=== PATIENT | female | born 1970 | race Caucasian/White ===

== ENCOUNTER 2022-03-01 23:52 | Observation (INO) | payer OTHER, SELFPAY ==
--- NOTE | ~2022-03-01 | CT_ITS ---
EXAMINATION: CT abdomen pelvis w con DATE: 03/02/2022 02:34 INDICATION: Hypoxia. Abdomen pain. Vomiting. TECHNIQUE: Computed tomography (CT) of the abdomen and pelvis was performed with 100 cc Omnipaque 350 intravenous contrast. The dose-length product was 205.28 mGy-cm. Automated exposure control and iter ative reconstruction technique were employed. COMPARISON: None. FINDINGS: Lung bases are unremarkable. There is lingular atelectasis/scarring. Heart size normal. Sma ll hiatal hernia. There is mild thickening of the distal stomach. There are fluid-filled enhancing sm all bowel loops. No pain with transition site is identified. Colonic diverticula without diverticulit is. There is hepatic steatosis. Gallbladder is present. The spleen, pancreas, adrenal glands and left kid sim are unremarkable. There is a right renal cyst. No significant vascular abnormality. No lymphadeno luther. No free air or free fluid. There is mild lumbar spondylosis. IMPRESSION: 1. Mild thickening of the stomach with fluid-filled distended enhancing small bowel. Findings suspici ous for gastroenteritis. 2: Small hiatal hernia. 3: Hepatic steatosis. Reviewed, dictated and finalized at location B. IMPRESSION: 1. Mild thickening of the stomach with fluid-filled distended enhancing small b owel. Findings suspicious for gastroenteritis. 2: Small hiatal hernia. 3: Hepatic steatosis.
--- NOTE | ~2022-03-01 | XR_ITS ---
EXAMINATION: XR chest 1V portable INDICATION: Hypoxia TECHNIQUE: Portable AP chest at 0329 hours COMPARISON: None available FINDINGS: The lungs are free of acute opacities. No pleural effusion or pneumothorax. The cardiomedia stinal silhouette is normal. IMPRESSION: 1. No acute cardiopulmonary abnormality. Reviewed, dictated and finalized at location A.
--- NOTE | ~2022-03-01 | XR_ITS ---
EXAMINATION: XR abdomen/kub 1V DATE: 03/03/2022 09:41 INDICATION: Constipation. TECHNIQUE: A supine view of the abdomen was obtained. COMPARISON: CT abdomen and pelvis 03/02/2022 FINDINGS: There are no dilated loops of bowel. There is a paucity of stool in the colon. IMPRESSION: 1. Normal bowel gas pattern. Reviewed, dictated and finalized at location A.
[2022-03-02] VITALS (18 sets, daily range): BP systolic 101–148; BP diastolic 67–96; PULSE 72–110; RESP 14–25; TEMP 35.8–36.8; O2SAT 93–100; BMI 18.7
--- NOTE | 2022-03-02 | ECHO_ITS ---
Patient Info Name: Karen Blackburn Age: 51 years : 1970 Gender: Female Ht: 64 in Wt: 109 lbs BSA: 1.49 m2 HR: 94 bpm BP: 104 / 68 mmHg Heart Rhythm: Sinus Rhythm Technical Quality: Fair Exam Date: 03/02/2022 2:38 PM Exam Location: [facility] Card Pulmonary Patient Status: Inpatient Admit Date: 03/02/2022 Staff Ordering Physician: Carlos Connor MD Risk Control Representative: Mary House RDCS Attending Provider: Ollie Ambriz MD Referring Physician: Geeta SALAZAR; Exam Type: CA echo doppler color flow Study Info Indications I47.2 - Ventricular tachycardia Complete two-dimensional, color flow and Doppler transthoracic echocardiogram is performed. Summary 1. Complete two-dimensional, color flow and Doppler transthoracic echocardiogram is performed. 2. The left ventricular diastolic function is normal. 3. Left ventricular chamber dimension is normal. 4. Left ventricular systolic function is normal, estimated at 65-70%. 5. There is no increased left ventricular wall thickness. 6. There is no aortic valve stenosis. 7. There is trace tricuspid valve regurgitation. 8. No pulmonary hypertension, estimated pulmonary arterial systolic pressure is 29 mmHg. 9. Normal inferior vena cava with <50% collapse upon inspiration consistent with elevated right atrial pressure, 10 mmHg. Left Ventricle The left ventricular diastolic function is normal. Left ventricular chamber dimension is normal. Left ventricular systolic function is normal, estimated at 65-70%. There is no increased left ventricular wall thickness. Right Ventricle Right ventricular chamber dimension is normal. Right ventricular systolic function is normal. Left Atria Left atrial chamber dimension is normal. Right Atria Right atrial chamber dimension is normal. Aortic Valve The aortic valve is not well visualized. There is no aortic valve stenosis. There is no aortic valve regurgitation. Pulmonic Valve The pulmonic valve is not well visualized. Mitral Valve The mitral valve has normal leaflets. There is trace mitral valve regurgitation. Tricuspid Valve The tricuspid valve leaflets are normal. There is trace tricuspid valve regurgitation. No pulmonary hypertension, estimated pulmonary arterial systolic pressure is 29 mmHg. Pericardium/Pleural The pericardium appears normal. There is no pericardial effusion. Inferior Vena Cava Normal inferior vena cava with <50% collapse upon inspiration consistent with elevated right atrial pressure, 10 mmHg. Aorta The aortic root size at the sinus of Valsalva is normal. Left Ventricular Outflow Tract Name Value Normal LVOT 2D LVOT Diameter 1.9 cm LVOT Doppler LVOT Peak Gradient 2 mmHg LVOT Mean Gradient 2 mmHg LVOT VTI 16 cm LVOT VTI/AV VTI Ratio 1.0 LVOT Stroke Volume 45 ml LVOT CO 3.2 l/min LVOT CI 2.1 l/min/m2 Pulmonic Valve
[2022-03-02 00:11] LABS: Basophils Absolute Auto 0.1 K/mm3 (0.0-0.1); Basophils Percent Auto 1.9 % (0.2-1.2); Eosinophils Absolute Auto 0.2 K/mm3 (0-0.3); Eosinophils Percent Auto 2.6 % (0-4.4); Hematocrit 38.1 % (37.0-47.0); Hemoglobin 13.6 g/dL (12.0-15.0); Immature Granulocyte Absolute 0.02 K/mm3 (0.00-0.031); Immature Granulocyte Percent A 0.3 % (0-0.5); Lymphocytes Absolute Auto 3.43 K/mm3 (0.9-3.2); Lymphocytes Percent Auto 55.5 % (18.3-44.2); Mean Corpuscular HGB Conc 35.7 g/dl (32-36); Mean Corpuscular Hemoglobin 35.8 pg (26-34); Mean Corpuscular Volume 100.3 fl (80-100); Mean Platelet Volume 10.5 fl (7.4-10.4); Monocytes Absolute Auto 0.9 K/mm3 (0.1-0.6); Monocytes Percent Auto 14.2 % (2.6-8.5); Neutrophils Absolute Auto 1.6 K/mm3 (1.3-6.7); Neutrophils Percent Auto 25.5 % (45.5-73.1); Platelet Count Result 126 k/mm3 (150-375); Red Cell Distribution Width 14.3 % (11.5-14.5); White Blood Count 6.2 K/mm3 (4.5-10.0)
[2022-03-02 00:28] LABS: Alanine Aminotransferase 77 U/L (6-35); Albumin Level 4.9 g/dL (3.5-5.1); Alkaline Phosphatase 92 U/L (38-126); Anion Gap 18 mmol/L (8-16); Aspartate Amino Transferase 325 U/L (14-36); Blood Urea Nitrogen 4 mg/dL (7-17); Calcium 9.6 mg/dL (8.4-10.2); Carbon Dioxide 23 mmol/L (22-30); Chloride 97 mmol/L (98-107); Estimated CRCL calculation 87 ml/min; Estimated Glomerular Filt Rate > 60; Glucose 108 mg/dL (65-110); Lipase 350 U/L (23-300); Potassium 3.8 mmol/L (3.4-5.0); Sodium 138 mmol/L (137-145)
--- NOTE | 2022-03-02 00:33 | PC.NURSE ---
Pt advised to remain NPO while waiting to see provider due to abd pain and N/V. Pt seen eating candy in waiting room.
--- NOTE | 2022-03-02 00:57 | PC.NURSE ---
Pt called for room, no answer.
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
[2022-03-02 01:37] LABS: Add Urine Microscopic? YES; Appearance Urine Clear (Clear); Bilirubin Urine Negative (Negative); Blood Urine Negative (Negative); Color Urine Straw (Yellow); Glucose Urine UA Negative (Negative); Ketones Urine Negative (Negative); Leukocyte Esterase Ur Negative LEU/UL (Negative); Nitrate Urine Positive (Negative); Protein Urine Negative (Negative); RBC Urine 0-2 /hpf (0-2); Squamous Epithelial Cell Urine Rare /hpf (Few); Urobilinogen Urine Negative mg/dL (<2.0); WBC Urine 0-3 /hpf
[2022-03-02] MEDS: MORPHINE SULFATE (*CRX) 4 MG/ML INJ IV PUSH (01:53)
[2022-03-02] MEDS: ONDANSETRON INJ 4 MG/2 ML VIAL IV PUSH (01:53)
[2022-03-02 01:54] LABS: Specific Grav Ur 1.002 (1.001-1.035)
[2022-03-02] MEDS: SODIUM CHLORIDE 0.9% IV 1,000 ML 999 ML IV CONT (01:54)
[2022-03-02] MEDS: KETOROLAC 15 MG/ML VIAL (*BKC) IV PUSH (02:01)
--- NOTE | 2022-03-02 02:53 | ECG_ITS ---
Measurements Intervals Colver Rate: 102 P: 72 HI: 154 QRS: 76 QRSD: 86 T: 79 QT: 347 QTc: 452 Interpretive Statements SINUS TACHYCARDIA WITH NONSUSTAINED VENTRICULAR TACHYCARDIA ABNORMAL ECG NO PREVIOUS ECG AVAILABLE FOR COMPARISON Electronically Signed On 03-02-2022 16:05:18 CDT by Gen Saldivar M.D.
--- NOTE | 2022-03-02 03:08 | PC.NURSE ---
Mag and Ethanol levels added on the bloodwork obtained and already in lab.
[2022-03-02 03:33] LABS: Magnesium 1.4 mg/dL (1.6-2.3)
--- NOTE | 2022-03-02 03:43 | PM.IMHP ---
H&P: HPI History of Present Illness Date/Time: 03/02/22 03:43 Chief Complaint: Constipation Review of Systems Review of Systems: This is a 51-year-old female with past medical history significant for alcohol dependence, tobacco dependence. Patient has been participating at the 12 step program with a no new most alcoholics in the outpatient setting and has been sober for several months since June of this year however had 2 shots of alcohol in the day due to tremors as a means to make a go away. The reason the printed diet patient to come to the hospital was constipation for 2 weeks has tried various things at home with no success. Patient denies any nausea, vomiting, has had abdominal pain, no fevers, no rigors, no chills, no cough, no sputum production, no palpitations, no dizziness, no lightheadedness. however while the patient was in the emergency room it was noted that she has several runs of V-tach 6-8 beats at the time also preliminary workup was significant for an alcohol level of 400, magnesium 1.4. patient has been admitted for further evaluation management and treatment. Constitutional: Constitutional: Denies chills, Denies fatigue, Denies fever(s), Denies malaise and Denies night sweats Eyes: Eyes: Denies change in vision ENT: Denies dysphagia, Denies vertigo, Denies dizziness and Denies odynophagia Cardiovascular: Cardiovascular: Denies chest pain, Denies syncope, Denies irregular heart rhythm, Denies lightheadedness and Denies palpitations Respiratory: Respiratory: Denies chest congestion and Denies cough Gastrointestinal: Gastrointestinal: Reports abdominal pain, Reports constipation, Denies dyspepsia and Denies heartburn Genitourinary: Genitourinary: Denies dysuria Musculoskeletal: Musculoskeletal: Denies myalgias Integumentary/Breasts: Skin/Breast: Denies rash Neurologic: Denies focal weakness and Denies Sensory deficit (Neuro) Psychiatric: Psychiatric: Reports panic attacks Endocrine: Endocrine: Denies cold intolerance, Denies flushing, Denies heat intolerance, Denies polyphagia, Denies polydipsia and Denies palpitations Hematologic/Lymphatic: Hematologic/Lymphatic: Reports no additional hematologic/lymphatic complaints and Reports as per HPI Allergic/Immunologic: Allergic/Immunologic: Reports no additional allergic/immunologic complaints and Reports as per HPI Meds Home Medications and Allergies Allergies Allergy/AdvReac Type Severity Reaction Status Date / Time pertussis vaccine,adsorbed Allergy Unknown UNKNOWN-WAS Verified 03/02/22 01:26 INFANT Vital Signs Vital Signs - 24 hr 03/02/22 00:00 03/02/22 01:37 03/02/22 02:45 Temperature 97.7 F Pulse Rate 110 H 91 100 Respiratory Rate 14 18 25 H Blood Pressure 148/96 H 126/90 123/75 Pulse Oximetry 97 97 97 Oxygen Delivery Room Air Exam Narrative: Patient is laying in a stretcher Const: General: comfortable, no acute distress, well developed, alert, awake, underweight and other ( patient looks older than stated age) Nutritional Appearance: average body habitus Orientation/consciousness: patient oriented x3 HENMT: Head: normal to inspection, normocephalic and atraumatic Ears: hearing grossly normal bilaterally Face/Nose/Sinus: normal facial exam Face and sinus: normal facial exam Eyes: General: appearance normal, both eyes and all related structures Pupils: Equal, round and reactive pupils present EOM: EOMs intact bilaterally Neck: Neck: full ROM, no lymphadenopathy and no JVD Thyroid: thyroid normal Lymphatic: no lymphadenopathy noted Resp: Effort & Inspection: normal respiratory effort and able to speak in complete sentences Auscultation: clear to auscultation bilaterally Cardio: Jugular venous distension: no JVD Rate: regular rate Rhythm: regular rhythm Heart sounds: S1 normal heart sound present and S2 normal heart sound present GI: GI Palp: Yes Soft to palpation and Yes No hepatosplenomegaly present :
[2022-03-02 03:52] LABS: Troponin I < 0.012 ng/mL (0.000-0.034)
[2022-03-02 03:53] LABS: Ethanol 435 mg/dL (<10)
[2022-03-02 04:12] LABS: SARS-CoV-2 RNA PCR Negative
[2022-03-02 04:18] LABS: Glucose Point of Care 86 mg/dl (65-105)
[2022-03-02 04:37] LABS: Troponin I < 0.012 ng/mL (0.000-0.034)
[2022-03-02] MEDS: PEG (High)/E-LYTE SOLN 4,000 ML BTL 4000 ML PO (04:47)
[2022-03-02] MEDS: MAGNESIUM SULFATE 3GM/D5W100ML 3 GM/100 ML BAG IVPB (04:48)
[2022-03-02] MEDS: THIAMINE HCL INJ 100 MG, FOLIC ACID INJ 1 MG, MULTIVITAMINS-12 INJ VIAL 1 5 ML, MULTIVI... 125 MG IV CONT (04:48)
[2022-03-02 04:56] LABS: Ethanol 377 mg/dL (<10)
--- NOTE | 2022-03-02 06:57 | PC.NURSE ---
This patient, Karen Blackburn, was admitted to IMU Room 232-01 at .0444 Patient/family oriented to hospital policies and general routines including ID bracelet, bed and alarms, visiting hours, pain management, procedures, bathroom and other care routines, personal items, smoking policy, room service/diet, and visiting hours. Information on how to activate the Rapid Response Team has been discussed. Patient/Family are encouraged to report perceived risks to care and to ask questions if they do not understand what they are told or what they should do.
--- NOTE | 2022-03-02 08:05 | PC.NURSE ---
Notified Dr. Ambriz regarding patient having runs of V-tach. Pt is admitting for this specific reason. Overnight patient only had a run of up to 15 beats of V-tach, however at 0800 this AM patient had a run of 24 beats of V-tach. Mag was 1.4 on labs and patient received 3 gram Mg rider. Patient is currently receiving a banana bag as well. Pt also receiving Golytely at this time. New order to stop Golytely and to consult Cardiology regarding V-tach. Pt is asymptomatic with stable VS at this time
[2022-03-02 08:47] LABS: Hematocrit 35.3 % (37.0-47.0); Hemoglobin 12.1 g/dL (12.0-15.0); Immature Platelet Fraction Pct 9.1 % (0.9-11.2); Mean Corpuscular HGB Conc 34.3 g/dl (32-36); Mean Corpuscular Hemoglobin 35.5 pg (26-34); Mean Corpuscular Volume 103.5 fl (80-100); Platelet Count Result 109 k/mm3 (150-375); Red Blood Count 3.41 M/mm3 (4.2-5.4); Red Cell Distribution Width 14.6 % (11.5-14.5)
[2022-03-02 08:56] LABS: Anion Gap 14 mmol/L (8-16); Blood Urea Nitrogen 2 mg/dL (7-17); Calcium 7.9 mg/dL (8.4-10.2); Carbon Dioxide 25 mmol/L (22-30); Chloride 103 mmol/L (98-107); Estimated CRCL calculation 88 ml/min; Estimated Glomerular Filt Rate > 60; Glucose 75 mg/dL (65-110); Magnesium 2.5 mg/dL (1.6-2.3); Phosphorus 4.4 mg/dL (2.5-4.5); Potassium 3.5 mmol/L (3.4-5.0); Sodium 142 mmol/L (137-145)
--- NOTE | 2022-03-02 10:29 | PM.IMPN ---
Progress Note: A&P Assessment and Plan (1) Constipation: Code(s): K59.00 - Constipation, unspecified Status: Acute Assessment and Plan: ct abdoenw ith no bowel obstruction but signs of gastroenteritis will try suppository. may not tolerate golytely. GI consultation. add PPI (2) Alcohol dependence: Code(s): F10.20 - Alcohol dependence, uncomplicated Status: Acute Assessment and Plan: patient is enrolled in 12 step program CIWA as needed patient states that has been sober since June however preliminary workup shows alcohol level of 400 (3) Tobacco dependence: Code(s): F17.200 - Nicotine dependence, unspecified, uncomplicated Status: Acute Assessment and Plan: nicotine patch as needed (4) Abnormal LFTs: Code(s): R79.89 - Other specified abnormal findings of blood chemistry Status: Acute Assessment and Plan: likely secondary to alcohol intake Plan 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 asymptoamtic. cardiology consult. troponin negative elevated lipase with mild tranaminitis. continue to monitor. ivf hydration Thrombocytopenia: likley due to alcohol use. contineu to motniro. Diet: NPO with sips of water for today and bowel rest. iv hydration to continue. iv analgesics prn Subjective Date/time seen: 03/02/22 10:29 Interval history: HPI: Patient is a 51-year-old female presenting with abdominal pain.? Patient states that she has been constipated for the last 2 weeks.? States that she has tried everything from MiraLAX to enemas to suppositories to castor oil but she has been unable to have a large bowel movement.? States that she has been vomiting for the last 2 days.? She is concerned she has a bowel obstruction.? She denies fevers, chest pain, shortness of breath, dysuria, flank pain, leg swelling. 03/02/2022: complains of abdominal pain, nausea, no vomiting. tried enema at home without help. constipatd since a week now. ct abdomen reveiwed. frequent NSVTs noted. repalced electrolytes. she is on AA and she slipped and drank alcohol yesterday. Review of Systems Review of Systems: All systems reviewed & are unremarkable except as noted in HPI and below Exam Narrative: GENERAL: Well-appearing, well-nourished, emotional but in no acute distress. HEAD: Normocephalic, atraumatic. EYES: PERRLA and EOMI. ENT: Nares clear, no rhinorrhea or epistaxis.? Mucous membranes moist. NECK: Supple. CHEST: Clear to auscultation.? No respiratory distress. HEART: Regular rate and rhythm.? No murmur heard.? Normal peripheral pulses. ABDOMEN: Soft, diffusely tender abdomen, no rebound or rigidity EXTREMITIES: Normal range of motion.? No edema. SKIN: Warm, dry, no rash. NEURO: No focal deficits.? Alert and oriented x3. PSYCH: Normal mood and affect. Objective Data Vital Signs Vital Signs: Vital Signs - 24 hr 03/02/22 00:00 03/02/22 01:37 03/02/22 02:45 Temperature 97.7 F Pulse Rate 110 H 91 100 Respiratory Rate 14 18 25 H Blood Pressure 148/96 H 126/90 123/75 Pulse Oximetry 97 97 97 Oxygen Delivery Room Air 03/02/22 04:47 03/02/22 05:00 03/02/22 04:47 Temperature 97.7 F Pulse Rate 89 78 84 Respiratory Rate 20 16 Blood Pressure 127/71 126/67 Pulse Oximetry 95 100 Oxygen Delivery 03/02/22 06:00 03/02/22 05:00 03/02/22 08:11 Temperature 96.4 F L Pulse Rate 90 82 Respiratory Rate 18 Blood Pressure 104/68 Pulse Oximetry 98 Oxygen Delivery Room Air Intake/Output Intake/Output: Intake & Output 02/27/22 02/28/22 03/01/22 03/02/22 23:59 23:59 23:59 23:59 Intake Total 1000 Output Total 1130 Balance -130 Meds/Results Medications: Active Medications Generic Name Dose Route Start Last Admin Trade Name Freq PRN Reason Stop Dose Admin Thiamine HCl 100 mg/ Folic 1,013.2 mls @ 125 mls/hr 03/02/22 03:45 03/02/22 04:48 Acid 1 mg/ Multivitamins 5 ml/ IV CONT 03/02/22 11:51 125 mls/h
[2022-03-02 11:16] LABS: Glucose Point of Care 93 mg/dl (65-105)
[2022-03-02] MEDS: PANTOPRAZOLE SODIUM IV 40 MG VIAL IV PUSH (11:33)
[2022-03-02] MEDS: BISACODYL 10 MG SUPPOSITORY RECTAL (11:34)
[2022-03-02 12:25] LABS: Lactic Acid Reflex 1.2 mmol/L (0.7-2.0)
--- NOTE | 2022-03-02 13:08 | PM.CNCAR ---
Assessment and Plan Assessment and plan (1) Ventricular tachycardia: Code(s): I47.20 - Ventricular tachycardia, unspecified Status: Acute Plan this is a 51-year-old woman with chronic alcoholism and cigarette smoking. She enters the hospital with constipation and has asymptomatic nonsustained ventricular tachycardia noted since admission to the hospital. No history of syncope. One obvious concern is that of a possible alcoholic cardiomyopathy. He does have a history of coronary disease in her father at a young age and a history of smoking so ischemic disease certainly also is of course in the differential diagnosis. At this time I am going to order an echocardiogram to assess the structural basis of this. It is likely we will need to be considering ischemic workup but that does not need to happen while she is in the hospital dealing with constipation. Carlos Connor MD [facility] History of Present Illness History of Present Illness Consult date/time: 03/02/22 13:08 Reason For Visit: Non-sustained VT Narrative: This is a 51-year-old woman I am seeing at the request of the hospitalist because of ventricular arrhythmias. She is unknown to me prior to this consultation and has no previous history of known cardiac problems. The patient is unfortunately a alcoholic drinking very heavily for many years. She has a significant attempt at sobriety starting in June of this year when she joint alcoholics anonymous. There have been times however she has failed and once again was drinking heavily. She came into the hospital emergency room yesterday complaining about constipation. She stated she had had a bowel movement and couple of weeks and was beginning to have significant abdominal discomfort. She was not having any cardiovascular symptoms of any kind. It was apparently noticed in the emergency room while she was being evaluated and was on telemetry as she was having some ventricular runs. During her 12 lead EKG she had a 6 beat run of nonsustained ventricular tachycardia. The ECG is otherwise an unremarkable tracing. Because of this we have been asked to see her in consultation. She has been placed on telemetry and is in sinus rhythm with occasional ventricular runs like this. The patient says she does notice occasional extrasystoles when she is lying in bed at night and sometimes some brief episodes of tachycardia but these have never been of concern to her she has never had any sense of near syncope and she has never experienced a syncopal episode. She denies any symptoms of exertional chest pain shortness of breath orthopnea PND or accumulating lower extremity edema. 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 She does smoke cigarettes about a half a pack per day and has been smoking for many years. Alcohol level upon admission here was 400. Review of Systems Constitutional: Constitutional: Reports no additional constitutional complaints Eyes: Eyes: Reports no additional eye complaints ENT: Reports system reviewed and no additional complaints, except as documented Cardiovascular: Comments: Occasional palpitations as per at above Respiratory: Respiratory: Reports no additional respiratory complaints Gastrointestinal: Gastrointestinal: Reports as per HPI and Reports constipation Musculoskeletal: Musculoskeletal: Reports no additional musculoskeletal complaints Integumentary/Breasts: Skin/Breast: Reports system reviewed and no additional complaints, except as docu Neurologic: Reports system reviewed and no additional complaints, except as documented Endocrine: Endocrine: Reports no additional endocrine complaints Hematologic/Lymphatic: Hematologic/Lymphatic: Reports no additional hematologic/lymphatic complaints Allergic/Immunologic: Allergic/Immunologic: Reports no additional allergic/immun
[2022-03-02] MEDS: SODIUM CHLORIDE 0.9% IV 1,000 ML 75 ML IV CONT (16:12)
--- NOTE | 2022-03-02 17:45 | WPDGICN ---
Assessment and Plan Assessment and plan (1) Constipation: Code(s): K59.00 - Constipation, unspecified Status: Acute Assessment and Plan: judging by the appearance of her CT scan and the fact she is having loose stools, I do not think she is constipated At this time. (2) Abnormal LFTs: Code(s): R79.89 - Other specified abnormal findings of blood chemistry Status: Acute Assessment and Plan: This is Most likely due to her alcohol abuse which she denies although elevated blood alcohol levels suggest that she has had quite a bit lately. CT shows hepatic steatosis. (3) Alcohol dependence: Code(s): F10.20 - Alcohol dependence, uncomplicated Status: Acute Assessment and Plan: She had a high blood alcohol level on admission. We will the to watch for alcohol withdrawal syndrome. (4) Tobacco dependence: Code(s): F17.200 - Nicotine dependence, unspecified, uncomplicated Status: Acute Assessment and Plan: There was a very strong odor of tobacco when I entered her room the 2nd time. She states that my sister was here earlier and she must have been smoking Plan she states that she is hungry. I think that we can go ahead try her on a regular diet. GI Consult Note Consult date/time: 03/02/22 17:45 HPI: Karen Blackburn is a 51 year old female who presents to the emergency room complaining of abdominal discomfort and not having had a bowel movement for [address] scan was done that did not show a significant amount of stool but did show thickening of the stomach consistent with gastritis. She also had a very high blood alcohol level, greater than 400, although she states that she has been in alcohol treatment programs and only had a couple of shots yesterday. She denies abdominal pain other than the feeling that she needs to have a bowel movement. She states that she was given an enema when she came in and she was having a bowel movement as I went in to examine her. She states that her stool is thin and very loose. She is sure that there must be more stool up there that is not coming out. CT shoows: 1. Mild thickening of the stomach with fluid-filled distended enhancing small bowel. Findings suspicious for gastroenteritis. 2:? Small hiatal hernia. 3: Hepatic steatosis. 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 Spiritual care concerns: No Has the Lack of Transportation Kept You From Medical Appointments or From Getting Medications?: No Within the Past 12 Months, Were You Worried Whether Your Food Would Run Out Before You Got Money to Buy More?: Often True What is Your Housing Situation Today?: I Have Housing Are You Worried That in the Next 2 Months, You May Not Have Your Own Housing to Live In?: Yes Do You Have Trouble Paying Your Heating Or Electricity Bill?: No Do You Have Trouble Paying For Medicines?: No Are You Currently Unemployed and Looking for Work?: No Highest Level of Education Completed: High School Diploma/GED Do You Have Trouble With Childcare or the Care of a Family Member?: No Meds Home Medications and Allergies Home Medications Medication Instructions Recorded Confirmed Type No Home Medications 03/02/22 03/02/22 H
--- NOTE | 2022-03-02 22:21 | PC.NURSE ---
2000 Report called to [facility] on [facility]. Patient's belongings packed up and transported via wheelchair along with medications and chart.
[2022-03-03] VITALS (9 sets, daily range): BP systolic 117–143; BP diastolic 64–90; PULSE 67–100; RESP 16–20; TEMP 36.3–36.7; O2SAT 98–100
[2022-03-03] MEDS: SODIUM CHLORIDE 0.9% IV 1,000 ML 75 ML IV CONT (05:57)
[2022-03-03 06:25] LABS: Basophils Absolute Auto 0.1 K/mm3 (0.0-0.1); Eosinophils Absolute Auto 0.2 K/mm3 (0-0.3); Hematocrit 36.1 % (37.0-47.0); Hemoglobin 12.4 g/dL (12.0-15.0); Immature Granulocyte Absolute 0.03 K/mm3 (0.00-0.031); Immature Granulocyte Percent A 0.8 % (0-0.5); Immature Platelet Fraction Pct 8.1 % (0.9-11.2); Lymphocytes Percent Auto 27.5 % (18.3-44.2); Mean Corpuscular HGB Conc 34.3 g/dl (32-36); Mean Corpuscular Hemoglobin 34.5 pg (26-34); Mean Corpuscular Volume 100.6 fl (80-100); Mean Platelet Volume 10.9 fl (7.4-10.4); Monocytes Absolute Auto 0.5 K/mm3 (0.1-0.6); Monocytes Percent Auto 12.3 % (2.6-8.5); Neutrophils Absolute Auto 2.1 K/mm3 (1.3-6.7); Neutrophils Percent Auto 53.4 % (45.5-73.1); Platelet Count Result 96 k/mm3 (150-375); Red Blood Count 3.59 M/mm3 (4.2-5.4); Red Cell Distribution Width 14.6 % (11.5-14.5)
[2022-03-03 06:41] LABS: Alanine Aminotransferase 78 U/L (6-35); Alkaline Phosphatase 96 U/L (38-126); Anion Gap 12 mmol/L (8-16); Aspartate Amino Transferase 372 U/L (14-36); Bilirubin,Total 1.1 mg/dL (0.2-1.3); Carbon Dioxide 20 mmol/L (22-30); Chloride 108 mmol/L (98-107); Estimated CRCL calculation 88 ml/min; Estimated Glomerular Filt Rate > 60; Glucose 57 mg/dL (65-110); Lipase 145 U/L (23-300); Magnesium 1.6 mg/dL (1.6-2.3); Potassium 3.8 mmol/L (3.4-5.0); Sodium 140 mmol/L (137-145)
[2022-03-03 06:47] LABS: Glucose Point of Care 64 mg/dl (65-105)
[2022-03-03 06:59] LABS: Blood Urea Nitrogen < 2 mg/dL (7-17)
--- NOTE | 2022-03-03 07:04 | WPDGIPROGNO ---
Progress Note: A&P Assessment and Plan (1) Constipation: Code(s): K59.00 - Constipation, unspecified Status: Acute Assessment and Plan: judging by the appearance of her CT scan and the fact she is having loose stools, I do not think she is constipated At this time. (2) Abnormal LFTs: Code(s): R79.89 - Other specified abnormal findings of blood chemistry Status: Acute Assessment and Plan: This is Most likely due to her alcohol abuse which she denies although elevated blood alcohol levels suggest that she has had quite a bit lately. CT shows hepatic steatosis. her AST is a little higher today, 372 bilirubin is normal. I told her that my main concern is her liver. She understands that is due to her alcohol abuse. I explained that fatty liver is a step before cirrhosis. (3) Alcohol dependence: Code(s): F10.20 - Alcohol dependence, uncomplicated Status: Acute Assessment and Plan: She had a high blood alcohol level on admission. We will the to watch for alcohol withdrawal syndrome. So far no evidence of alcohol withdrawal syndrome. No shaking his, confusion or other worrisome signs this morning. (4) Tobacco dependence: Code(s): F17.200 - Nicotine dependence, unspecified, uncomplicated Status: Acute Assessment and Plan: There was a very strong odor of tobacco when I entered her room the 2nd time. She states that my sister was here earlier and she must have been smoking Plan she states that she is hungry. I think that we can go ahead try her on a regular diet. I will order a KUB to convince myself and her that there is no excess stool or High impaction. I truly do not believe there is. If she tolerates a regular diet I think she could be discharged to follow-up as an outpatient. Subjective Date/time seen: 03/03/22 07:04 she states that she feels much better today. She is hungry. I had ordered her a regular diet yesterday but she apparently was still getting clear liquids last night. She states that her belly feels much better, but still feels as though there are should be a lot more stool that needs to come out. No more bowel movements during the night. Exam Const: General: comfortable, alert, thin and other ( appears older than her stated age) Nutritional Appearance: thin Orientation/consciousness: patient oriented x3 Resp: Auscultation: clear to auscultation bilaterally Cardio: Rhythm: regular rhythm GI: Auscultation: normal bowel sounds Neuro: General: patient oriented x3 Motor exam (neuro): No Asterixis during motor activity present Objective Data Vital Signs Vital Signs: Vital Signs - 24 hr 03/02/22 08:11 03/02/22 08:00 03/02/22 08:00 Temperature 35.8 C L Pulse Rate 82 72 Respiratory Rate 18 Blood Pressure 104/68 Pulse Oximetry 98 Oxygen Delivery Room Air 03/02/22 10:00 03/02/22 12:00 03/02/22 12:00 Temperature Pulse Rate 96 104 H Respiratory Rate Blood Pressure Pulse Oximetry Oxygen Delivery Room Air 03/02/22 12:48 03/02/22 14:00 03/02/22 16:28 Temperature 36.3 C L 36.4 C Pulse Rate 106 H 92 102 H Respiratory Rate 20 18 Blood Pressure 128/85 122/89 Pulse Oximetry 93 99 Oxygen Delivery 03/02/22 16:00 03/02/22 16:00 03/02/22 18:00 Temperature Pulse Rate 94 80 Respiratory Rate Blood Pressure Pulse Oximetry Oxygen Delivery Room Air 03/02/22 20:00 03/02/22 20:00 03/02/22 20:00 Temperature 36.8 C Pulse Rate 84 89 Respiratory Rate 16 Blood Pressure 101/69 Pulse Oximetry 97 Oxygen Delivery Room Air 03/02/22 23:34 03/02/22 22:00 03/03/22 03:42 Temperature 36.2 C L 36.3 C L Pulse Rate 76 86 83 Respiratory Rate 20 20 Blood Pressure 112/79 143/86 H Pulse Oximetry 98 98 Oxygen Delivery Intake/Output Intake/Output: Intake & Output 02/28/22 03/01/22 03/02/22 03/03/22 23:59 23:59 23:59 23:59 Intake To
[2022-03-03] MEDS: PANTOPRAZOLE SODIUM IV 40 MG VIAL IV PUSH (08:46)
[2022-03-03] MEDS: DEXTROSE 5%/0.45% SOD CHL 1,000 ML 75 ML IV CONT (08:46)
[2022-03-03 08:58] LABS: Glucose Point of Care 100 mg/dl (65-105)
--- NOTE | 2022-03-03 09:23 | PM.PNCARD ---
Progress Note: A&P Assessment and Plan (1) Ventricular tachycardia: Code(s): I47.20 - Ventricular tachycardia, unspecified Status: Acute Assessment and Plan: Asymptomatic NSVT noted on telemetry during this admission. Concern for ETOH related cardiomyopathy but echo yesterday showed normal LVSF, no significant valve pathology. Discussed echo results with her. Plan for outpatient lexiscan stress test to evaluate for any possible underlying CAD as she has risk factors for this. Cardiology will sign off at this time please do not hesitate to contact us with any questions. Subjective Date/time seen: 03/03/22 09:23 Cardiology follow up for NSVT Interval history: Feeling well this morning. Has had 2 bowel movements and denies any abdominal pain, nausea or vomiting. Denies chest pain or palpitations. Review of Systems Constitutional: Constitutional: Reports no additional constitutional complaints Eyes: Eyes: Reports no additional eye complaints ENT: Reports system reviewed and no additional complaints, except as documented Respiratory: Respiratory: Reports no additional respiratory complaints Gastrointestinal: Gastrointestinal: Reports as per HPI and Reports constipation Musculoskeletal: Musculoskeletal: Reports no additional musculoskeletal complaints Integumentary/Breasts: Skin/Breast: Reports system reviewed and no additional complaints, except as docu Neurologic: Reports system reviewed and no additional complaints, except as documented Endocrine: Endocrine: Reports no additional endocrine complaints Hematologic/Lymphatic: Hematologic/Lymphatic: Reports no additional hematologic/lymphatic complaints Allergic/Immunologic: Allergic/Immunologic: Reports no additional allergic/immunologic complaints Exam Const: General: comfortable and no acute distress Other: pleasant thin white female appears her stated age in no distress of any kind HENMT: Face/Nose/Sinus: Normal nares present Eyes: Sclera: sclerae normal Pupils: Equal, round and reactive pupils present Neck: Neck: supple Other: about 3 cm of jugular venous distention. carotid pulses are normal bilaterally and without bruits Resp: Effort & Inspection: normal respiratory effort Auscultation: clear to auscultation bilaterally Cardio: Rate: regular rate Rhythm: regular rhythm Other: PMI is grossly nondisplaced no murmur no gallop frequent extrasystoles noted Skin: General skin exam: normal color Neuro: Cranial nerves: Yes Equal, round and reactive pupils present Other: alert and oriented x3 Extrem: Other: no edema, good pulses distally Objective Data Vital Signs Vital Signs: Vital Signs - 24 hr 03/02/22 10:00 03/02/22 12:00 03/02/22 12:00 Temperature Pulse Rate 96 104 H Respiratory Rate Blood Pressure Pulse Oximetry Oxygen Delivery Room Air 03/02/22 12:48 03/02/22 14:00 03/02/22 16:28 Temperature 36.3 C L 36.4 C Pulse Rate 106 H 92 102 H Respiratory Rate 20 18 Blood Pressure 128/85 122/89 Pulse Oximetry 93 99 Oxygen Delivery 03/02/22 16:00 03/02/22 16:00 03/02/22 18:00 Temperature Pulse Rate 94 80 Respiratory Rate Blood Pressure Pulse Oximetry Oxygen Delivery Room Air 03/02/22 20:00 03/02/22 20:00 03/02/22 20:00 Temperature 36.8 C Pulse Rate 84 89 Respiratory Rate 16 Blood Pressure 101/69 Pulse Oximetry 97 Oxygen Delivery Room Air 03/02/22 23:34 03/02/22 22:00 03/03/22 03:42 Temperature 36.2 C L 36.3 C L Pulse Rate 76 86 83 Respiratory Rate 20 20 Blood Pressure 112/79 143/86 H Pulse Oximetry 98 98 Oxygen Delivery Intake/Output Intake/Output: Intake & Output 02/28/22 03/01/22 03/02/22 03/03/22 23:59 23:59 23:59 23:59 Intake Total 2133.2 1550 Output Total 2580 Balance -446.8 1550 Meds/Results Medications: Active Medications Generic Name Dose Route Start Last Admin Trade Name Freq PRN R
[2022-03-03 12:21] LABS: Glucose Point of Care 135 mg/dl (65-105)
--- NOTE | 2022-03-03 12:32 | PM.IMPN ---
Progress Note: A&P Assessment and Plan (1) Constipation: Code(s): K59.00 - Constipation, unspecified Status: Acute Assessment and Plan: ct abdoenw ith no bowel obstruction but signs of gastroenteritis will try suppository. may not tolerate golytely. later she had 1 Fleet edema GI consultation. add PPI She had 2-3 bowel movement since then. Abdominal pain has resolved (2) Alcohol dependence: Code(s): F10.20 - Alcohol dependence, uncomplicated Status: Acute Assessment and Plan: patient is enrolled in 12 step program CIWA as needed patient states that has been sober since June however preliminary workup shows alcohol level of 400 Features of alcohol withdrawal will add Librium today Continue CIWA score (3) Tobacco dependence: Code(s): F17.200 - Nicotine dependence, unspecified, uncomplicated Status: Acute Assessment and Plan: nicotine patch as needed (4) Abnormal LFTs: Code(s): R79.89 - Other specified abnormal findings of blood chemistry Status: Acute Assessment and Plan: likely secondary to alcohol intake Plan 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 asymptoamtic. cardiology consult. troponin negative. Echo reviewed EF 65-70% with no valvular abnormality noted. appreciate cardiology consultation elevated lipase with mild tranaminitis. continue to monitor. ivf hydration Hypoglycemia: Monitor Accu-Cheks. Change fluid to D5 normal saline. May stop fluid if able to tolerate regular food Thrombocytopenia: likley due to alcohol use. contineu to motniro. slightly worsening. Diet: Diet advanced as tolerated Subjective Date/time seen: 03/03/22 12:32 Interval history: HPI: Patient is a 51-year-old female presenting with abdominal pain.? Patient states that she has been constipated for the last 2 weeks.? States that she has tried everything from MiraLAX to enemas to suppositories to castor oil but she has been unable to have a large bowel movement.? States that she has been vomiting for the last 2 days.? She is concerned she has a bowel obstruction.? She denies fevers, chest pain, shortness of breath, dysuria, flank pain, leg swelling. 03/02/2022: complains of abdominal pain, nausea, no vomiting. tried enema at home without help. constipatd since a week now. ct abdomen reveiwed. frequent NSVTs noted. repalced electrolytes. she is on AA and she slipped and drank alcohol yesterday. 03/03/2022: She had few bowel movement yesterday. She feels much better. No nausea vomiting or abdominal pain today. Off telemetry since midnight. Denies any chest pain. Feels a little shaky. Review of Systems Review of Systems: All systems reviewed & are unremarkable except as noted in HPI and below Exam Narrative: GENERAL: Well-appearing, well-nourished, in no acute distress. HEAD: Normocephalic, atraumatic. EYES: PERRLA and EOMI. ENT: Nares clear, no rhinorrhea or epistaxis.? Mucous membranes moist. NECK: Supple. CHEST: Clear to auscultation.? No respiratory distress. HEART: Regular rate and rhythm.? No murmur heard.? Normal peripheral pulses. ABDOMEN: Soft, Nontender, no rebound or rigidity EXTREMITIES: Normal range of motion.? No edema. SKIN: Warm, dry, no rash. NEURO: No focal deficits.? Alert and oriented x3. shaky and tremulous today PSYCH: Normal mood and affect. Objective Data Vital Signs Vital Signs: Vital Signs - 24 hr 03/02/22 12:48 03/02/22 14:00 03/02/22 16:28 Temperature 97.3 F L 97.6 F Pulse Rate 106 H 92 102 H Respiratory Rate 20 18 Blood Pressure 128/85 122/89 Pulse Oximetry 93 99 Oxygen Delivery 03/02/22 16:00 03/02/22 16:00 03/02/22 18:00 Temperature Pulse Rate 94 80 Respiratory Rate Blood Pressure Pulse Oximetry Oxygen Delivery Room Air 03/02/22 20:00 03/02/22 20:00 03/02/22 20:00 Temperature 98.2 F Pulse Rate 84 89 Respiratory Rate 16 Blood Pressure 101/69 Pulse Oximetry
[2022-03-03] MEDS: chlordiazePOXIDE (*CRX) 25 MG CAPSULE PO ×2 (13:05→21:10)
--- NOTE | 2022-03-03 13:47 | ECG_ITS ---
Measurements Intervals Shubert Rate: 143 P: 88 ND: 165 QRS: 91 QRSD: 155 T: -78 QT: 350 QTc: 542 Interpretive Statements SUPRAVENTRICULAR TACHYCARDIA WITH ABERRANCY INTRAVENTRICULAR CONDUCTION DELAY [130+ ms QRS DURATION] COMPARED TO ECG 03/02/2022 02:57:36 SUPRAVENTRICULAR TACHYCARDIA NOW PRESENT Electronically Signed On 03-03-2022 16:26:15 CDT by Jessica Durán M.D.
[2022-03-03] MEDS: MAGNESIUM SULF 2 GM/WATER 50ML 2 GM/50 ML BAG IVPB (13:53)
[2022-03-03] MEDS: METOPROLOL TARTRATE 12.5 MG TABLET PO (14:53)
[2022-03-03] MEDS: METOPROLOL TARTRATE 25 MG TABLET PO (17:46)
[2022-03-03 21:19] LABS: Glucose Point of Care 175 mg/dl (65-105)
[2022-03-04] VITALS (10 sets, daily range): BP systolic 116–128; BP diastolic 66–80; PULSE 68–98; RESP 16–18; TEMP 36.6–37; O2SAT 99–100
[2022-03-04] MEDS: METOPROLOL TARTRATE 25 MG TABLET PO ×3 (00:30→11:04)
[2022-03-04] MEDS: chlordiazePOXIDE (*CRX) 25 MG CAPSULE PO (05:29)
[2022-03-04 05:43] LABS: Basophils Absolute Auto 0.1 K/mm3 (0.0-0.1); Basophils Percent Auto 1.2 % (0.2-1.2); Eosinophils Absolute Auto 0.2 K/mm3 (0-0.3); Eosinophils Percent Auto 3.5 % (0-4.4); Hematocrit 40.2 % (37.0-47.0); Hemoglobin 14.1 g/dL (12.0-15.0); Immature Granulocyte Absolute 0.03 K/mm3 (0.00-0.031); Immature Granulocyte Percent A 0.6 % (0-0.5); Immature Platelet Fraction Pct 11.9 % (0.9-11.2); Lymphocytes Absolute Auto 1.42 K/mm3 (0.9-3.2); Lymphocytes Percent Auto 29.4 % (18.3-44.2); Mean Corpuscular HGB Conc 35.1 g/dl (32-36); Mean Corpuscular Hemoglobin 34.7 pg (26-34); Monocytes Absolute Auto 0.6 K/mm3 (0.1-0.6); Monocytes Percent Auto 12.2 % (2.6-8.5); Neutrophils Absolute Auto 2.6 K/mm3 (1.3-6.7); Neutrophils Percent Auto 53.1 % (45.5-73.1); Platelet Count Result 89 k/mm3 (150-375); Red Blood Count 4.06 M/mm3 (4.2-5.4); Red Cell Distribution Width 13.9 % (11.5-14.5); White Blood Count 4.8 K/mm3 (4.5-10.0)
[2022-03-04 05:55] LABS: Alanine Aminotransferase 70 U/L (6-35); Albumin Level 4.2 g/dL (3.5-5.1); Alkaline Phosphatase 98 U/L (38-126); Anion Gap 6 mmol/L (8-16); Aspartate Amino Transferase 275 U/L (14-36); Bilirubin,Total 1.4 mg/dL (0.2-1.3); Blood Urea Nitrogen 5 mg/dL (7-17); Calcium 8.9 mg/dL (8.4-10.2); Carbon Dioxide 30 mmol/L (22-30); Chloride 100 mmol/L (98-107); Estimated CRCL calculation 88 ml/min; Estimated Glomerular Filt Rate > 60; Glucose 106 mg/dL (65-110); Potassium 3.8 mmol/L (3.4-5.0); Sodium 136 mmol/L (137-145)
[2022-03-04] MEDS: PANTOPRAZOLE SODIUM IV 40 MG VIAL IV PUSH (08:00)
--- NOTE | 2022-03-04 10:25 | PM.DS ---
DS: Admitting Diagnosis Discharge Date March 04, 2022 Admitting Diagnosis Alcohol withdrawal DS: Discharge Diagnosis Discharge Diagnosis (1) Constipation: Code(s): K59.00 - Constipation, unspecified Status: Acute Assessment and Plan: ct abdoenw ith no bowel obstruction but signs of gastroenteritis will try suppository. may not tolerate golytely. later she had 1 Fleet edema GI consultation. add PPI She had 2-3 bowel movement since then. Abdominal pain has resolved (2) Alcohol dependence: Code(s): F10.20 - Alcohol dependence, uncomplicated Status: Acute Assessment and Plan: patient is enrolled in 12 step program CIWA as needed patient states that has been sober since June however preliminary workup shows alcohol level of 400 Features of alcohol withdrawal will add Librium today Continue CIWA score (3) Tobacco dependence: Code(s): F17.200 - Nicotine dependence, unspecified, uncomplicated Status: Acute Assessment and Plan: nicotine patch as needed (4) Abnormal LFTs: Code(s): R79.89 - Other specified abnormal findings of blood chemistry Status: Acute Assessment and Plan: likely secondary to alcohol intake Plan 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 asymptoamtic. cardiology consult. troponin negative. Echo reviewed EF 65-70% with no valvular abnormality noted. appreciate cardiology consultation elevated lipase with mild tranaminitis. continue to monitor. ivf hydration Hypoglycemia: Monitor Accu-Cheks. Change fluid to D5 normal saline. May stop fluid if able to tolerate regular food Thrombocytopenia: likley due to alcohol use. contineu to motniro. slightly worsening. Diet: Diet advanced as tolerated DS: Summary Hospital Course Hospital Course: 51-year-old female with past medical history significant for alcohol dependence, tobacco dependence.? Patient has been? participating at the 12 step program with a no new most alcoholics in the outpatient setting and has been sober for several months since June of this year however had 2 shots of alcohol in the day due to tremors as a means to make a go away.? The reason the printed diet patient to come to the hospital was constipation for 2 weeks has tried various things at home with no success.? Patient denies any nausea, vomiting, has had abdominal pain, no fevers, no rigors, no chills, no cough, no sputum production, no palpitations, no dizziness, no lightheadedness. however while the patient was in the emergency room it was noted that she has several runs of V-tach 6-8 beats at the time also preliminary workup was significant for an alcohol level of 400, magnesium 1.4. patient has been admitted for further evaluation management and treatment. Patient was given a suppository and symptoms resolved. Cardiology was consulted recommended outpatient ischemic workup. Gastroenterology was consulted stated symptoms resolved and she was stable for discharge. Time Spent with Patient Time attestation: Total time spent providing and/or coordinating discharge services: Exam Narrative: GENERAL: Well-appearing, well-nourished, in no acute distress. HEAD: Normocephalic, atraumatic. EYES: PERRLA and EOMI. ENT: Nares clear, no rhinorrhea or epistaxis.? Mucous membranes moist. NECK: Supple. CHEST: Clear to auscultation.? No respiratory distress. HEART: Regular rate and rhythm.? No murmur heard.? Normal peripheral pulses. ABDOMEN: Soft, Nontender, no rebound or rigidity EXTREMITIES: Normal range of motion.? No edema. SKIN: Warm, dry, no rash. NEURO: No focal deficits.? Alert and oriented x3. shaky and tremulous today PSYCH: Normal mood and affect. DS: Data Data Completed and Pending Labs on day of discharge: Labs from last 24 hours 03/04/22 03/04/22 03/03/22 05:24 05:24 21:16 WBC 4.8 RBC 4.06 L Hgb 14.1 Hct 40.2 MCV 99.0 MCH 34.7 H MCHC 35.1 RDW 13.9 Plt
--- NOTE | 2022-03-04 10:48 | PM.PNCARD ---
Progress Note: A&P Assessment and Plan (1) SVT (supraventricular tachycardia): Code(s): I47.1 - Supraventricular tachycardia Status: Acute Plan Structurally normal heart on transthoracic echocardiogram. Currently getting a total of Metoprolol 100mg daily. Overnight tele with frequent aberrantly conducted PACs with brief runs of SVT (HR in the 140s-150s). Patient has no symptoms related to this. Would increase Metoprolol to 100mg BID. 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 Patient to follow-up with us as an outpatient. Time Spent With Patient Time with patient: 15 - 25 minutes Subjective Date/time seen: 03/04/22 10:48 Interval history: This is a follow-up visit for SVT. Patient remains asymptomatic from a cardiac standpoint. Denies any palpitations. Telemetry shows frequent PACs with aberrant conduction, had a brief run of SVT this AM. I do not see clear evidence of VT on tele. Patient is wanting to go home today. Review of Systems Constitutional: Constitutional: Reports no additional constitutional complaints Eyes: Eyes: Reports no additional eye complaints Cardiovascular: Cardiovascular: Reports no additional cardiovascular complaints, Denies chest pain, Denies leg edema, Denies lightheadedness and Denies palpitations Respiratory: Respiratory: Reports no additional respiratory complaints Gastrointestinal: Gastrointestinal: Reports as per HPI Musculoskeletal: Musculoskeletal: Reports no additional musculoskeletal complaints Integumentary/Breasts: Skin/Breast: Reports system reviewed and no additional complaints, except as docu Neurologic: Reports system reviewed and no additional complaints, except as documented Hematologic/Lymphatic: Hematologic/Lymphatic: Reports no additional hematologic/lymphatic complaints Allergic/Immunologic: Allergic/Immunologic: Reports no additional allergic/immunologic complaints Exam Const: General: comfortable and no acute distress HENMT: Mouth: Yes moist mucous membranes Eyes: General: appearance normal, both eyes and all related structures Neck: Neck: supple and no JVD Resp: Effort & Inspection: normal respiratory effort Auscultation: clear to auscultation bilaterally Cardio: Rate: regular rate Rhythm: regular rhythm Heart sounds: no murmurs GI: GI Palp: Yes Soft to palpation and No Tenderness to palpation present (GI) Skin: General skin exam: normal color Neuro: Speech: normal speech Extrem: General: no edema Psych: Mental Status: mental status grossly normal Objective Data Vital Signs Vital Signs: Vital Signs - 24 hr 03/03/22 12:00 03/03/22 14:00 03/03/22 14:53 Temperature Pulse Rate 100 88 Pulse Rate [Monitor] Respiratory Rate Blood Pressure 130/90 Pulse Oximetry Oxygen Delivery 03/03/22 16:00 03/03/22 16:00 03/03/22 17:46 Temperature Pulse Rate 86 94 Pulse Rate [Monitor] Respiratory Rate Blood Pressure 130/90 Pulse Oximetry Oxygen Delivery 03/03/22 16:00 03/03/22 20:00 03/03/22 20:00 Temperature 36.4 C 36.4 C Pulse Rate 86 79 Pulse Rate [Monitor] 79 Respiratory Rate 16 18 Blood Pressure 129/86 117/64 Pulse Oximetry 100 100 Oxygen Delivery 03/03/22 20:00 03/03/22 23:41 03/04/22 00:00 Temperature 36.7 C Pulse Rate 88 Pulse Rate [Monitor] 68 Respiratory Rate 18 Blood Pressure 130/78 Pulse Oximetry 100 Oxygen Delivery Room Air 03/04/22 00:30 03/03/22 20:00 03/04/22 00:00 Temperature Pulse Rate 70 67 95 Pulse Rate [Monitor] Respiratory Rate Blood Pressure Pulse Oximetry Oxygen Delivery 03/04/22 03:38 03/04/22 04:00 03/04/22 04:00 Temperature 37.0 C Pulse Rate 95 70 Pulse Rate [Monitor] 70 Respiratory Rate 18 Blood Pressure 126/78 Pulse Oximetry 100 Oxygen Delivery 03/04/22 05:29 03/04/22 08:00 03/04/22 [facility]
== END 2022-03-04 14:50 | disposition home or self-care (01) ==
LOC: ANHED 03-02 04:25 → ANHIMU 03-02 04:58 → ANH2MED 03-03 11:32 → ANHIMU 03-09 12:45
PROVIDERS: Admitting Provider Internal Medicine; Emergency Provider Emergency Medicine; PCP Internal Medicine; Visit Provider Internal Medicine
DX: I47.1 Supraventricular tachycardia (principal); K59.00 Constipation, unspecified; R79.89 Other specified abnormal findings of blood chemistry; F10.20 Alcohol dependence, uncomplicated; Y90.8 Blood alcohol level of 240 mg/100 ml or more; F17.210 Nicotine dependence, cigarettes, uncomplicated; K44.9 Diaphragmatic hernia without obstruction or gangrene; K76.0 Fatty (change of) liver, not elsewhere classified; Z20.822 Contact with and (suspected) exposure to COVID-19; K52.9 Noninfective gastroenteritis and colitis, unspecified; F12.90 Cannabis use, unspecified, uncomplicated; D69.6 Thrombocytopenia, unspecified; Z82.49 Family history of ischemic heart disease and other diseases of the circulatory system
CPT/HCPCS: 36415; 71045; 74018; 74177; 80048; 80053; 80307; 81001; 81025; 82948; 83605; 83690; 83735; 84100; 84484; 85025; 85027; 85055; 93005; 93306; 96361; 96365; 96366; 96374; 96375; 99285; A9270; C9113; C9803; G0378; J0131; J1885; J2270; J2405; J3411; J3475; J7030; Q9967; U0003; U0005